=== PATIENT | male | born 1960 | race Caucasian/White ===

== ENCOUNTER 2021-04-09 06:31 | Emergency (ER) | payer OTHER ==
[~2021-04-09] VITALS: Ht 185.4 cm; Wt 99.8 kg
[2021-04-09] MEDS ORDERED: LISINOPRIL20 MG PO ×2 (06:43→15:00)
[2021-04-09] MEDS ORDERED: KEPPRA750 MG PO (06:44)
[2021-04-09] MEDS ORDERED: ALPRAZOLAM XR3 MG PO (06:45)
[2021-04-09 07:00] LABS: ABSOLUTE MONOCYTES 0.4 thou/uL (0.0-1.2); ABSOLUTE NEUTROPHILS 2.8 thou/uL (1.6-8.1); BASOPHILS 0.2 %; EOSINOPHILS 0.1 %; HEMATOCRIT 47.9 % (42.0-52.0); HEMOGLOBIN 17.1 gm/dL (14.0-18.0); LYMPHOCYTES 38.7 %; MCHC 35.7 g/dL (28.0-37.0); MCV 84.1 fL (80.0-100.0); MONOCYTES 7.1 %; MPV 7.8 fl. (7.2-11.1); NUCLEATED RBCS 0 /100WBC; PLATELET COUNT* 160 thou/uL (150-400); POLYS 53.9 %; RBC 5.69 mil/uL (4.50-6.00); RDW-CV 14.2 % (10.5-14.5); WBC 5.2 thou/uL (4.0-11.0)
[2021-04-09 07:15] LABS: CALCIUM 8.6 mg/dL (8.5-10.1); CREATININE 1.2 mg/dL (0.6-1.3); POTASSIUM 3.9 mmol/L (3.5-5.1)
[2021-04-09 07:20] LABS: TOTAL BILIRUBIN 0.9 mg/dL (<0.1-1.0); TOTAL PROTEIN 6.3 g/dL (6.4-8.2)
[2021-04-09 08:14] LABS: CHOLESTEROL 128 mg/dL (<200); HDL CHOLESTEROL 33 mg/dL (>40); LDL CHOLESTEROL 62 mg/dL (<100); TC:HDL 3.9 Ratio (Not establshd); TRIGLYCERIDE 169 mg/dL (<150); VLDL 34 mg/dL (<40)
[2021-04-09 08:15] LABS: SERUM ASSESSMENT Clear
--- NOTE | 2021-04-09 14:56 | EXE ---
[place] [address] STRESS ECHOCARDIOGRAM Name: CHINGBETHEL BANDAR Room: [facility]#: [id number] Admission: 04/09/21 Attend Phys: Discharge: Date of : 62 Date of Service: 04/09/21 1456 Report #: [id number] THIS REPORT FOR: cc: [facility] - Clinic physician unknown [facility] - [facility] physician unknown Jules Tomlinson MD [facility] ~ APPROVED REPORT Study performed: 04/09/2021 13:18:29 Exam: Stress Echocardiogram Indication: Troponin elevation, Dizziness Patient Location: In-Patient Stress Nurse: Mary Mccray RN Room #: Supervising Physician: Jules Tomlinson MD Ht: 6 ft 1 in HR: 74 bpm BP: 118/97 mmHg Medical History Cardiac Risk Factors: Age, , HTN, Tobacco History (Former) Procedure The patient underwent an Exercise Stress Test using the Johnny Protocol. Blood pressure, heart rate, and EKG were monitored. An Echocardiogram was performed by library information technician in four stages in quad fashion. At peak stress, four selected images were obtained and placed side by side with resting images for comparison. Stress Test Details Stress Test: Exercise stress testing was performed using a Johnny protocol. HR Resting HR: 74 bpm Max Heart Rate (APMHR): 161 bpm Max HR Achieved: 166 bpm Target HR (85% APMHR): 136 bpm % of APMHR: 103 Recovery HR: 85 bpm HR response to stress: Normal HR response to stress BP Resting BP: 118/97 mmHg Max BP: 229/103 [place] [address] STRESS ECHOCARDIOGRAM Name: BETHEL FLOWER Room: [facility]#: [id number] Admission: 04/09/21 Attend Phys: Discharge: Date of : 62 Date of Service: 04/09/21 1456 Report #: [id number] Recovery BP: 131/96 mmHg BP response to stress: Normal blood pressure response to stress. ECG Resting ECG: Sinus Rhythm Stress ECG: Sinus Tachycardia ST Change: None Arrhythmia: None Recovery ECG: Sinus Rhythm Recovery ST Change: None Recovery Arrhythmia: None Clinical Reason for Termination: Completed protocol Exercise duration: 5 min 59 sec Highest Stage Achieved: Stage 2: 2.5 mph at 12% grade. Exercise capacity: 7.05 METs The patient tolerated standard Johnny protocol exercise without cardiac symptom. Stress ECG Conclusion The baseline twelve-lead EKG shows sinus rhythm without significant ST segment or T wave abnormality. EKGs obtained during and post exercise show sinus rhythm and sinus tachycardia with no significant ST segment or T wave changes when compared to baseline. There were no stress-induced arrhythmias. Pre-Stress Echo The resting Echocardiogram showed normal left ventricular contractility with an estimated Ejection Fraction of about 60-65%. The resting echocardiogram demonstrated normal wall motion in all wall segments. Post-Stress Echo The stress Echocardiogram showed normal left ventricular contractility with an estimated Ejection Fraction of about >70%. Compared to rest, there were no stress-induced wall motion abnormalities. Conclusion Clinical Response: Non-ischemic Exercise Capacity: Below Average Stress ECG Response: Non-ischemic Stress Echo Images: [place] [address] STRESS ECHOCARDIOGRAM Name: BETHEL FLOWER Room: [facility]#: [id number] Admission: 04/09/21 Attend Phys: Discharge: Date of : 62 Date of Service: 04/09/21 1456 Report #: [id number] Other Information Study Quality: Good <ELECTRONICALLY SIGNED> By: Jules Tomlinson MD, FACC 04/09/21 1456 55 55 Jules Tomlinson MD, FACC /INF
[2021-04-09 15:05] VITALS: BP 122/90
--- NOTE | 2021-04-09 15:45 | EKG ---
[place] [address] ELECTROCARDIOGRAM REPORT Name: BETHEL FLOWER Room: [facility]#: [id number] Admission: 04/09/21 Attend Phys: Discharge: 04/09/21 Date of : 62 Date of Service: 04/09/21 0643 Report #: [id number] THIS REPORT FOR: //name// [facility] ED Test Date: 2021-04-09 Test Time: 06:43:11 Pat Name: BETHEL FLOWER Department: Room: Gender: Programming Manager: : 1960 Requested By: Joana Fatima Order Number: [id number] MD: Ghulam Rodas Measurements Intervals [place]on Rate: 70 P: -2 NH: 184 QRS: -26 QRSD: 103 T: 30 QT: 400 QTc: 432 Interpretive Statements Sinus rhythm Borderline left axis deviation No previous ECG available for comparison Electronically Signed On 04-09-2021 15:44:48 CDT by Ghulam Rodas [email or web address] <ELECTRONICALLY SIGNED> By: Ghulam Rodas MD, [facility] 04/09/21 1544 [id number] Ghulam Rodas MD, [facility] /EPI
== END 2021-04-09 15:05 | disposition home or self-care (01) ==
LOC: M.ERS 06:31
PROVIDERS: Emergency Medicine; Registered Nurse
DX: I11.0 Hypertensive heart disease with heart failure (principal); I10 Essential (primary) hypertension; Z79.2 Long term (current) use of antibiotics; Z88.2 Allergy status to sulfonamides; Z88.8 Allergy status to other drugs, medicaments and biological substances; Z85.841 Personal history of malignant neoplasm of brain